=== PATIENT | female | born 1945 | race Caucasian/White ===

== ENCOUNTER 2017-01-08 07:10 | Day surgery (SDC) | payer MEDICARE, BC ==
[~2017-01-08 07:10] MED LIST: RINGER'S SOLUTION,LACTATED 1,000 ML IV PRN
[2017-01-08 07:45] VITALS: BP 131/61
[2017-01-08] MEDS ORDERED: RINGER'S SOLUTION,LACTATED 1,000 ML IV ONE (07:50)
== END 2017-01-08 07:11 | disposition home or self-care (01) ==
LOC: AMB 07:10
PROVIDERS: ATTEND Obstetrics & Gynecology
DX: Z53.09 Procedure and treatment not carried out because of other contraindication (principal)

== ENCOUNTER 2017-01-21 11:02 | Day surgery (SDC) | payer MEDICARE, BC ==
[~2017-01-21 11:02] MED LIST changes: +ACETAMINOPHEN 325 MG TABLET PO PRN; +ACETYLCHOLINE CHLORIDE 20 DROP KIT IO PRN; +BUPIVACAINE HCL/PF 30 ML VIAL IJ PRN; +CYCLOPENTOLATE HCL 20 DROP BTL LEFTEYE PRN; +DEXTROSE 5%-0.5 NORMAL SALINE 1,000 ML IV PRN; +EPINEPHrine 1 MG/ML AMPUL IO PRN; +HYALURONATE SODIUM 0.4 ML DISP.SYRIN IO PRN; +HYALURONATE SODIUM 0.85 ML DISP.SYRIN IO PRN; +LIDOCAINE HCL/PF 200 MG/5 ML AMPUL TP PRN; +LIDOCAINE HCL/PF 5 ML VIAL IO PRN; +NORMAL SALINE 3 ML BOX IV PRN; -RINGER'S SOLUTION,LACTATED 1,000 ML IV PRN; +TETRACAINE HCL 150 DROP BTL OP PRN
[2017-01-21] MEDS: PHENYLEPHRINE HCL 50 DROP BTL LEFTEYE PRN ×3 (11:34→12:12)
[2017-01-21] MEDS: TROPICAMIDE 150 DROP BTL LEFTEYE PRN ×3 (11:34→12:12)
[2017-01-21 14:29] VITALS: BP 155/69
== END 2017-01-21 11:03 | disposition home or self-care (01) ==
LOC: AMB 11:02
PROVIDERS: ATTEND Ophthalmology
PROC: 08RK3JZ Replacement of Left Lens with Synthetic Substitute, Percutaneous Approach (ICD-10-PCS; principal; 2017-01-21 12:05)
DX: H26.8 Other specified cataract (principal); K21.9 Gastro-esophageal reflux disease without esophagitis; I47.1 Supraventricular tachycardia; Z87.891 Personal history of nicotine dependence; Z68.31 Body mass index [BMI] 31.0-31.9, adult

== ENCOUNTER 2017-02-04 11:02 | Day surgery (SDC) | payer MEDICARE, BC ==
[~2017-02-04 11:02] MED LIST changes: -CYCLOPENTOLATE HCL 20 DROP BTL LEFTEYE PRN; +CYCLOPENTOLATE HCL 20 DROP BTL RIGHTEYE PRN
[2017-02-04] MEDS: PHENYLEPHRINE HCL 50 DROP BTL RIGHTEYE PRN ×3 (11:42→12:18)
[2017-02-04] MEDS: TROPICAMIDE 150 DROP BTL RIGHTEYE PRN ×3 (11:42→12:18)
[2017-02-04] MEDS ORDERED: DEXTROSE 5%-0.5 NORMAL SALINE 1,000 ML IV ONE (11:49)
[2017-02-04 14:44] VITALS: BP 150/62
== END 2017-02-04 11:03 | disposition home or self-care (01) ==
LOC: AMB 11:02
PROVIDERS: ATTEND Ophthalmology
PROC: 08RJ3JZ Replacement of Right Lens with Synthetic Substitute, Percutaneous Approach (ICD-10-PCS; principal; 2017-02-04 12:00)
DX: H26.9 Unspecified cataract (principal); K21.9 Gastro-esophageal reflux disease without esophagitis; I47.1 Supraventricular tachycardia; Z87.891 Personal history of nicotine dependence; Z68.31 Body mass index [BMI] 31.0-31.9, adult

== ENCOUNTER 2017-02-12 07:00 | Day surgery (SDC) | payer MEDICARE, BC ==
[~2017-02-12 07:00] MED LIST changes: -ACETAMINOPHEN 325 MG TABLET PO PRN; -ACETYLCHOLINE CHLORIDE 20 DROP KIT IO PRN; -BUPIVACAINE HCL/PF 30 ML VIAL IJ PRN; -CYCLOPENTOLATE HCL 20 DROP BTL RIGHTEYE PRN; -DEXTROSE 5%-0.5 NORMAL SALINE 1,000 ML IV PRN; -EPINEPHrine 1 MG/ML AMPUL IO PRN; -HYALURONATE SODIUM 0.4 ML DISP.SYRIN IO PRN; -HYALURONATE SODIUM 0.85 ML DISP.SYRIN IO PRN; -LIDOCAINE HCL/PF 200 MG/5 ML AMPUL TP PRN; -LIDOCAINE HCL/PF 5 ML VIAL IO PRN; -NORMAL SALINE 3 ML BOX IV PRN; +RINGER'S SOLUTION,LACTATED 1,000 ML IV PRN; -TETRACAINE HCL 150 DROP BTL OP PRN
[2017-02-12 07:26] LABS: Hematocrit 43.4 % (37.0-47.0); Hemoglobin 14.2 gm/dL (12.5-16.0); Mean Cell Volume 93.7 fl (78-100); Mean Corpuscular Hemoglobin 30.7 pg (27-31); Mean Corpuscular Hgb Conc 32.7 g/dl (32-36); Neutrophil # 2.7 K/mm3 (1.3-6.0); Neutrophil % 48.3 % (42-75.0); Platelet Count 212 K/mm3 (150-450); Red Blood Count 4.63 M/mm3 (4.2-5.4); Red Cell Distribution Width 12.7 % (11.5-14.0); White Blood Count 5.5 K/mm3 (4.0-10.5)
[2017-02-12] MEDS ORDERED: IBUPROFEN 600 MG TABLET PO PRN (08:37)
[2017-02-12 10:02] VITALS: BP 143/58
--- NOTE | 2017-02-12 14:29 | OR ---
Operative Report - Dictated Report Narrative: Operative Report 02/12/2017 Hysteroscopy Dilatation and Curettage Preoperative Diagnosis: Abnormal Appearance of Endometrium on Ultrasound Postoperative Diagnosis: Abnormal Appearance of Endometrium on Ultrasound Procedure: Hysteroscopy Dilatation and Curettage Surgeon: Angelica Hancock M.D. Anesthesia: Matthew Lux CRNA, IV sedation Findings: Uterine sound 7 cm. There was a possible small anterior submucosal fibroid on the anterior aspect of the endometrium. Minimal amount of tissue with curettings. Fluids: 200 ml EBL: Minimal Drains: None Complications: None Condition: Stable Pathology: Endometrial curettings Procedure: The patient was taken to the operating room with IV fluids running. She was placed in the dorsal lithotomy position after anesthesia was induced. A bivalve speculum was placed in the vagina. The anterior lip of the cervix was grasped with a single-tooth tenaculum. 2.5mm hysteroscope was introduced into the endocervical canal to navigate to the endometrium. Uterine sound was passed into the endometrial cavity with ease. Uterine sound was 7 cm. The cervix was dilated with Fercho dilators. The hysteroscope was introduced into the endometrial cavity. The cavity was distended with normal saline. [place] were visualized bilaterally. There was a small anterior submucosal fibroid on the anterior aspect of the endometrium which appeared to be degenerating. The hysteroscope was removed. The cavity was sharply curetted without difficulty. The hysteroscope was once again introduced into the cavity. The cavity was completely curetted. The hysteroscope was removed. The single-tooth tenaculum was removed. Sites were hemostatic. The speculum was removed from the vagina. Sponge counts were correct 2. The patient tolerated the procedure well.
== END 2017-02-12 07:01 | disposition home or self-care (01) ==
LOC: AMB 07:00
PROVIDERS: ATTEND Obstetrics & Gynecology
PROC: 0UJD8ZZ Inspection of Uterus and Cervix, Via Natural or Artificial Opening Endoscopic (ICD-10-PCS; 2017-02-12)
PROC: 0UDB7ZX Extraction of Endometrium, Via Natural or Artificial Opening, Diagnostic (ICD-10-PCS; principal; 2017-02-12 08:00)
DX: D25.0 Submucous leiomyoma of uterus (principal); K21.9 Gastro-esophageal reflux disease without esophagitis; Z87.891 Personal history of nicotine dependence; Z68.31 Body mass index [BMI] 31.0-31.9, adult